=== PATIENT | female | born 1965 | race Caucasian/White ===

== ENCOUNTER 2018-12-17 07:30 | Inpatient (IN) | payer OTHER ==
[~2018-12-17] VITALS: Ht 170.2 cm; Wt 103.4 kg
[2018-12-17] MEDS ORDERED: KAPSPARGO SPRIN50 MG PO (08:24)
[2018-12-17] MEDS ORDERED: COZAAR100 MG PO (08:24)
[2018-12-17] MEDS ORDERED: LIPITOR40 MG PO (08:25)
[2018-12-17] MEDS ORDERED: LANTUS ×2 (08:26→08:27)
[2018-12-17] MEDS ORDERED: ASPIRIN81 M1 PO (08:27)
[2018-12-17] MEDS ORDERED: BETIMOL5 M1 (08:28)
[2018-12-17] MEDS ORDERED: LANTAPROST (08:29)
[2018-12-17] MEDS ORDERED: [UNRECOGNIZED DRUG - OTHER] (08:30)
[2018-12-17] MEDS ORDERED: HYDROCHLOROTH12.5 M1 PO (10:42)
[2018-12-23] MEDS ORDERED: TIMOLOL MALEATE5 M4 OP (08:21)
[2018-12-23] MEDS ORDERED: LATANOPROST2.5 ML OP (08:22)
[2018-12-25] MEDS ORDERED: GABAPENTIN600 MG PO (06:43)
[2018-12-25] MEDS ORDERED: IBUPROFEN800 MG PO (06:43)
== END 2018-12-25 07:44 | disposition home or self-care (01) | DRG 743 ==
LOC: OB/GYN 12-23 05:30 → O/R 12-23 05:30 → SURH 12-23 07:30 → OB/GYN 12-23 13:13
PROVIDERS: ADMIT Obstetrics & Gynecology
PROC: 0UT70ZZ Resection of Bilateral Fallopian Tubes, Open Approach (ICD-10-PCS; 2018-12-23)
PROC: 0UT90ZZ Resection of Uterus, Open Approach (ICD-10-PCS; principal; 2018-12-23 08:30)
DX: N93.8 Other specified abnormal uterine and vaginal bleeding (principal); N72 Inflammatory disease of cervix uteri; N80.0 Endometriosis of uterus; E11.9 Type 2 diabetes mellitus without complications; Z79.4 Long term (current) use of insulin; I10 Essential (primary) hypertension